=== PATIENT | female | born 1945 | race Asian ===

== ENCOUNTER 2016-07-25 08:56 | Emergency (ER) | payer BC ==
[~2016-07-25] VITALS: Ht 154.9 cm; Wt 54.4 kg
[2016-07-25 09:07] VITALS: BP 143/90
== END 2016-07-25 11:00 | disposition home or self-care (01) ==
LOC: EDBD 08:56 → EDUNIT# 08:56 → ER 08:58
DX: M17.12 Unilateral primary osteoarthritis, left knee (principal); Z88.0 Allergy status to penicillin
CPT/HCPCS: 73562